=== PATIENT | male | born 1930 | race Caucasian/White ===

== ENCOUNTER → 2016-11-11 | Outpatient (CLI) | payer MEDICARE ==
[2016-11-11 09:48] LABS: BASO % 0.5 % (0.0-1.0); EOS # 0.3 K/mm3 (0.0-0.50); EOS % 5.1 % (0.0-3.0); LYMPH # 1.8 K/mm3 (1.5-4.5); LYMPH % 26.2 % (24.0-44.0); MEAN CORPUSCULAR HEMOGLOBIN 31.9 pg (27.0-33.0); MEAN CORPUSCULAR HGB CONC 32.7 g/dl (32.0-36.5); MEAN CORPUSCULAR VOLUME 97.4 fl (80.0-96.0); MONO # 0.4 K/mm3 (0.0-0.8); MONO % 7.1 % (0.0-5.0); NEUTROPHILS # 3.7 K/mm3 (1.8-7.7); NEUTROPHILS % 58.9 % (36.0-66.0); RED CELL DISTRIBUTION WIDTH 13.5 % (11.5-14.5); WHITE BLOOD COUNT 6.2 K/mm3 (4.0-10.0)
[2016-11-11 10:54] LABS: ALBUMIN 3.6 GM/DL (3.2-5.2); ALBUMIN/GLOBULIN RATIO 1.13 (1.00-1.93); BILIRUBIN,TOTAL 0.3 MG/DL (0.2-1.0); CALCIUM LEVEL 8.8 MG/DL (8.8-10.2); CREATININE FOR GFR 1.27 MG/DL (0.70-1.30); POTASSIUM SERUM 4.7 MEQ/L (3.5-5.1); TOTAL PROTEIN 6.8 GM/DL (6.4-8.2)
== END ==
LOC: M LAB 09:01
PROVIDERS: ATTEND Physician Assistant
DX: I10 Essential (primary) hypertension (principal); E11.9 Type 2 diabetes mellitus without complications; R60.0 Localized edema; I35.8 Other nonrheumatic aortic valve disorders; I25.10 Atherosclerotic heart disease of native coronary artery without angina pectoris

== ENCOUNTER → 2016-11-18 | Outpatient (CLI) | payer MEDICARE ==
[2016-11-18 15:29] LABS: RETIC HEMOGLOBIN CONTENT CHr 34.4 PG (24-36); RETICULOCYTE % ADVIA2120 1.5 % (0.5-1.5)
[2016-11-18 15:51] LABS: PERCENT SATURATION 23.6 % (19.7-37.4)
== END ==
LOC: M LAB 14:47
PROVIDERS: ATTEND Family Medicine
DX: D64.9 Anemia, unspecified (principal)

== ENCOUNTER → 2017-05-09 | Outpatient (CLI) | payer MEDICARE ==
[2017-05-09 08:02] LABS: RETIC HEMOGLOBIN EQUIVALENT 35.5 pg (24-36); RETICULOCYTE % 1.6 % (0.5-1.5)
== END ==
LOC: M LAB 07:13
PROVIDERS: ATTEND Family Medicine
DX: D64.9 Anemia, unspecified (principal)

== ENCOUNTER → 2017-10-17 | Outpatient (REF) | payer MEDICARE | LOC: M LAB REF 11:43 | DX: J44.9 Chronic obstructive pulmonary disease, unspecified (principal) | CPT/HCPCS: 87186 ==

== ENCOUNTER → 2017-11-05 | Outpatient (CLI) | payer MEDICARE ==
[2017-11-05 08:03] LABS: ESTIMATED AVERAGE GLUCOSE 105 MG/DL (60-110); HEMOGLOBIN A1c 5.3 %
[2017-11-05 08:14] LABS: ANION GAP 12 MEQ/L (8-16); BLOOD UREA NITROGEN 21 MG/DL (7-18); CALCIUM LEVEL 8.3 MG/DL (8.8-10.2); CARBON DIOXIDE LEVEL 19 MEQ/L (21-32); CHLORIDE LEVEL 101 MEQ/L (98-107); CHOLESTEROL LEVEL 125 MG/DL (<200); CHOLESTEROL RISK RATIO 2.358 (<5); CREATININE FOR GFR 1.38 MG/DL (0.70-1.30); GLOMERULAR FILTRATION RATE 51.6 (>35); GLUCOSE, FASTING 102 MG/DL (70-100); HDL CHOLESTEROL 53 MG/DL (>40); LDL CHOLESTEROL 55.2 MG/DL (<100); NON-HDL-C 72 MG/DL; POTASSIUM SERUM 4.8 MEQ/L (3.5-5.1); SODIUM LEVEL 132 MEQ/L (136-145); TRIGLYCERIDES LEVEL 84 MG/DL (<150)
== END ==
LOC: M LAB 07:17
DX: E11.9 Type 2 diabetes mellitus without complications (principal)
CPT/HCPCS: 83036

== ENCOUNTER → 2017-11-18 | Outpatient (CLI) | payer MEDICARE | LOC: M CARPUL 09:03 | DX: R06.09 Other forms of dyspnea (principal); R05 Cough | CPT/HCPCS: 94060 ==

== ENCOUNTER → 2018-05-12 | Outpatient (CLI) | payer MEDICARE ==
[~2018-05-12] MED LIST: AMLO5TAB6 PO; ASPI81TA85 PO; ASPI81TAEC PO; FISH1000 PO; FLON1SPR; GLIP2.5T6 PO; HYDR10TAB PO; LORA10TA3 PO; LUTE10TA PO; METF500T13 PO; METO37.5 PO; METO50TA7 PO; OLME20TA2 PO; PROAAER10 INH; REST0.05 OU
[2018-05-12 08:15] LABS: CALCIUM LEVEL 8.6 MG/DL (8.8-10.2); CHOLESTEROL RISK RATIO 2.636 (<5); CREATININE FOR GFR 1.52 MG/DL (0.70-1.30); GLOMERULAR FILTRATION RATE 46.2 (>35); POTASSIUM SERUM 5.2 MEQ/L (3.5-5.1)
[2018-05-12 08:30] LABS: HEMOGLOBIN A1c 6.4 %
[2018-05-12 08:46] LABS: CREATININE, URINE 28.1 MG/DL; MAU/CREAT RATIO 1715.3 MCG/MG (0.0-30.0)
== END ==
LOC: M LAB 07:12
PROVIDERS: ATTEND Family Medicine
DX: E11.9 Type 2 diabetes mellitus without complications (principal)

== ENCOUNTER 2018-05-18 23:05 | Observation (INO) | payer MEDICARE ==
[~2018-05-18] VITALS: Ht 165.1 cm; Wt 64.8 kg
[2018-05-18] MEDS: ASPIRIN 81 MG ENTERIC TAB PO SCH (21:00)
[2018-05-18] MEDS ORDERED: ASPI81TA85 PO (23:26)
[2018-05-18] MEDS ORDERED: METO37.5 PO (23:26)
[2018-05-18] MEDS ORDERED: NS 1,000 ML IV ONE (23:45)
[2018-05-19 00:11] LABS: BASO # 0.1 10^3/uL (0.0-0.2); BASO % 0.6 % (0.0-1.0); EOS # 0.6 10^3/uL (0.0-0.50); EOS % 6.4 % (0.0-3.0); HEMATOCRIT 26.9 % (42.0-52.0); LYMPH # 1.9 10^3/uL (1.5-4.5); LYMPH % 21.4 % (24.0-44.0); MEAN CORPUSCULAR HEMOGLOBIN 31.6 pg (27.0-33.0); MEAN CORPUSCULAR HGB CONC 33.5 g/dl (32.0-36.5); MEAN CORPUSCULAR VOLUME 94.4 fl (80.0-96.0); MONO # 0.8 10^3/uL (0.0-0.8); MONO % 9.2 % (0.0-5.0); NEUTROPHILS # 5.5 10^3/uL (1.8-7.7); NEUTROPHILS % 61.7 % (36.0-66.0); PLATELET COUNT, AUTOMATED 226 10^3/uL (150-450); RED BLOOD COUNT 2.85 10^6/uL (4.30-6.10); WHITE BLOOD COUNT 8.9 10^3/uL (4.0-10.0)
[2018-05-19 00:36] LABS: BLOOD UREA NITROGEN 53 MG/DL (7-18); CALCIUM LEVEL 8.6 MG/DL (8.8-10.2); CARBON DIOXIDE LEVEL 18 MEQ/L (21-32); CHLORIDE LEVEL 109 MEQ/L (98-107); CPK CREATINE PHOSPHOKINASE 69 U/L (39-308); CREATININE FOR GFR 1.79 MG/DL (0.70-1.30); ETHYL ALCOHOL (ETHANOL) < 0.003 % (0.000-0.010); GLOMERULAR FILTRATION RATE 38.3 (>35); GLUCOSE, FASTING 155 MG/DL (70-100); MB/CK RELATIVE INDEX 2.46 (< OR =4); POTASSIUM SERUM 4.7 MEQ/L (3.5-5.1); SODIUM LEVEL 138 MEQ/L (136-145); TROPONIN I < 0.02 NG/ML (< 0.10)
--- NOTE | 2018-05-19 00:39 | REPVR ---
EXAM: CT Head Without Contrast EXAM DATE/TIME: 05/18/2018 11:37 PM CLINICAL HISTORY: 87 years old, male; Dizziness; Syncope TECHNIQUE: Axial computed tomography images of the head/brain without contrast. All CT scans at this facility use at least one of these dose optimization techniques: automated exposure control; mA and/or kV adjustment per patient size (includes targeted exams where dose is matched to clinical indication); or iterative reconstruction. COMPARISON: No relevant prior studies available. FINDINGS: Brain: There is no evidence for an acute large vessel territorial infarct, intracranial hemorrhage, mass, mass effect, or herniation. There are non-specific foci of low attenuation in the periventricular and subcortical white matter, which are likely the sequela of chronic small vessel ischemic injury. Brainstem: Unremarkable. Midline shift: There is no midline shift. Ventricles: The ventricles are mildly to moderately dilated in proportion to the sulci, which is compatible with mild to moderate generalized cerebral volume loss. Bones/joints: Normal. No acute fracture. Sinuses: Normal as visualized. No acute sinusitis. Mastoid air cells: There has been a partial right mastoidectomy and there is opacification of the right mastoid bowl. The left mastoid air cells are clear. Orbits: Incidental note is made of bilateral lens implants. Soft tissues: Unremarkable. Vasculature: There are atherosclerotic calcifications of the vertebral arteries and internal carotid arteries. IMPRESSION: 1. No CT evidence for an acute intracranial process. 2. Periventricular and subcortical white matter changes, which are likely the sequela of chronic small vessel ischemic injury. Electronically signed by: Mal Brady On 05/19/2018 00:39:13 AM
[2018-05-19] MEDS ORDERED: NS 1,000 ML IV SCH (01:36)
[2018-05-19] MEDS ORDERED: LORA10TA3 PO (01:42)
[2018-05-19] MEDS ORDERED: OLME20TA2 PO (01:42)
[2018-05-19] MEDS ORDERED: METF500T13 PO (01:42)
[2018-05-19] MEDS ORDERED: LUTE10TA PO (01:42)
[2018-05-19] MEDS ORDERED: GLIP2.5T6 PO (01:42)
[2018-05-19] MEDS ORDERED: METO50TA7 PO (01:42)
[2018-05-19] MEDS ORDERED: ASPI81TAEC PO (01:42)
[2018-05-19] MEDS ORDERED: REST0.05 OU (01:42)
[2018-05-19] MEDS ORDERED: FLON1SPR (01:42)
[2018-05-19] MEDS ORDERED: PROAAER10 INH (01:42)
[2018-05-19] MEDS ORDERED: FISH1000 PO (01:42)
[2018-05-19] MEDS ORDERED: ACETAMINOPHEN TAB 650MG DOSE (2X325MG) PO PRN (01:45)
[2018-05-19] MEDS ORDERED: IPRATROPIUM 0.5MG/ALBUTEROL 2.5MG INH SOL UD 3ML (DUONEB)(J7620) NEB PRN (01:45)
[2018-05-19] MEDS ORDERED: DEXTROSE 50% 50 ML SYRINGE IV PRN (01:45)
[2018-05-19] MEDS ORDERED: GLUCOSE 4 GM CHEW TABLET PO PRN (01:45)
[2018-05-19] MEDS ORDERED: GLUCAGON FOR INJ 1 MG VIAL (J1610) SC PRN (01:45)
--- NOTE | 2018-05-19 01:52 | HPEPDOC ---
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 He lost consciousness and was witnessed by his practitioner, one of his practitioner caught patient prior to fall. Patient denies of any prodrome illness such as fever, cough, sputum production, abdominal pain, diarrhea, or problems urinating. Patient also denies of any precipitating factors to make ensure that this such as chest pain, shortness of breath, palpitation, dizziness, or headache. But he has been having dry cough after having been ill with a cold 3 weeks ago. His roommate also was ill with similar symptoms and is also at the tail end of the illness as well. The only symptom that was left from the cold is the cough. Due to the holiday season, patient has not ate or drank well. He may have overworked himself this iday season. In the emergency room patient was found to have acute on chronic kidney disease. Review system: 10 point review systems negative than those described in HPI Past medical history: Coronary artery disease, heart murmur, hyperlipidemia, diabetes, hypertension X line surgical history CABG 1993, hemorrhoidectomy, mastoidectomy when he was 5 years old Social history patient drinks one scotch per day, used to smoke cigars but quit in 1979 (he smokes cigar from 1957 -), denies of any IV drug abuse Family medical history: Noncontributory ALLERGIES: Please see below. HOME MEDICATIONS: Please see below. PHYSICAL EXAMINATION: VITAL SIGNS: Please see below GENERAL APPEARANCE: Resting comfortably HEENT: Normocephalic, PERRLA, Mucous moist, CARDIOVASCULAR: S1,S2, pulse present, regularly, regular, Positive for murmur (which patient is aware of) LUNGS: Equal decreased air entry b/l, no wheezes or crackle ABDOMEN: Soft, BS present, no tenderness, no guarding GENITOURINARY: No Guzman EXTREMITIES: B/L no edema, capillary refill present SKIN: Warm, No fever NEUROLOGICAL: Cranial nerves grossly intact PSYCHIATRIC: Normal mood and affect for current situation, family at the bedside LABORATORY DATA: See below. IMAGING: [CT head: 1. No CT evidence for an acute intracranial process. 2. Periventricular and subcortical white matter changes, which are likely the sequela of chronic small vessel ischemic injury. ] MICROBIOLOGY: Please see below. 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 Syncope, dehydration and vasovagal response Telemetry, serial cardiac enzyme, echocardiogram Orthostatic Gentle IV fluid Acute on chronic kidney disease UA IV fluid Hold renal toxic medication Monitor, renal ultrasound and renal consult if no improvement CAD, resume home regimen Hypertension, resume home regimen and utilize prn medication Diabetes, fingersticks plus sliding scale, hold by mouth medication for now and utilize long-acting as needed Hyperlipidemia, currently not on any regimen please follow up with PCP Chronic anemia stable monitor DVT prophylaxis with heparin subcutaneous Vital Signs Vital Signs Date Time Temp Pulse Resp B/P (MAP) Pulse Ox O2 Delivery O2 Flow Rate FiO2 05/19/18 01:05 84 18 99 Room Air 05/19/18 01:00 176/78 (110) 05/18/18 23:08 96.7 Laboratory Data Labs 24H Laboratory Tests 2 05/18/18 23:46: Immature Granulocyte % (Auto) 0.7, White Blood Count 8.9, Red Blood Count 2.85L, Hemoglobin 9.0L, Hematocrit 26.9L, Mean Corpuscular Volume 94.4, Mean Corpuscul ar Hemoglobin 31.6, Mean Corpuscular Hemoglobin Concent 33.5, Red Cell Distribution Width 13.3, Platelet Count 226, Neutrophils (%) (Auto) 61.7, Lymphocytes (%) (Auto) 21.4L, Monocytes (%) (Auto) 9.2H, Eosinophils (%) (Auto) 6.4H, Basophils (%) (Auto) 0.6, Neutrophils # (Auto) 5.5, Lymphocytes # (Auto) 1.9, Monocytes # (Auto) 0.8, Eosinophils # (Auto) 0.6H, Basophils # (Auto) 0.1, Nucleated Red Blood Cells % (auto) 0.0, Anion Gap 11, Glomerular Filtration Rate 38.3, Blood Urea Nitrogen 53H, Creatinine 1.79H, Sodium Level 138, Potassium Level 4.7, Chloride Level 109H, Carbon Dioxide Level 18L, Calcium Level 8.6L, Total Creatine Kinase 69, Creatine Kinase MB 2.0, Creatine Kinase MB Relative In dex 2.46, Troponin I < 0.02, Ethyl Alcohol Level < 0.003 CBC/BMP Laboratory Tests 05/18/18 23:46 Red Blood Count 2.85 L, Mean Corpuscular Volume 94.4, Mean Corpuscular Hemoglobi n 31.6, Mean Corpuscular Hemoglobin Concent 33.5, Red Cell Distribution Width 13.3, Neutrophils (%) (Auto) 61.7, Lymphocytes (%) (Auto) 21.4 L, Monocytes (%) (Auto) 9.2 H, Eosinophils (%) (Auto) 6.4 H, Basophils (%) (Auto) 0.6, Neutrophils # (Auto) 5.5, Lymphocytes # (Auto) 1.9, Monocytes # (Auto) 0.8, Eosinophils # (Auto) 0.6 H, Basophils # (Auto) 0.1, Calcium Level 8.6 L, Total Creatine Kinase 69 Home Medications Scheduled (Restasis) 0.05 % Emu, 1 DROP OU DAILY (Lutein) 10 Mg Tab, 10 MG PO DAILY Aspirin (Aspirin EC) 81 Mg Tabec, 81 MG PO QHS Fish Oil (Fish Oil) 1,000 Mg Cap, 1,000 MG PO DAILY Fluticasone Propionate (Flonase Allergy Relief) 50 Mcg/Act Spr, 2 SPRAYS NA BID Glipizide (Glipizide ER) 2.5 Mg Tab, 2.5 MG PO DAILY Loratadine (Loratadine) 10 Mg Tab, 10 MG PO DAILY Metformin Hydrochloride (Metformin HCl) 500 Mg Tab, 1,000 MG PO BID Metoprolol Tartrate (Metoprolol Tartrate) 50 Mg Tab, 25 MG PO BID Olmesartan Medoxomil (Olmesartan Medoxomil) 20 Mg Tab, 20 MG PO DAILY Scheduled PRN Albuterol Sulfate (Proair Hfa) 108 Mcg/Act Aer, 2 PUFF INH Q4H PRN for SHORTNESS OF BREATH Allergies Coded Allergies: No Known Allergies (Unverified , 01/12/15) SJ BROWN MD May 19, 2018 01:52
[2018-05-19] MEDS: **hydrALAZINE** 10 MG TAB PO PRN ×4 (02:14→18:58)
[2018-05-19 03:07] LABS: MB/CK RELATIVE INDEX 2.82 (< OR =4); TROPONIN I 0.03 NG/ML (< 0.10)
[2018-05-19] MEDS ORDERED: METOPROLOL TART 25 MG TABLET PO ONE (03:30)
[2018-05-19] MEDS ORDERED: NITROGLYCERIN 2% OINT 1 GM *U/D* PKT TOP ONE (05:45)
[2018-05-19 05:55] LABS: HEMATOCRIT 25.2 % (42.0-52.0); HEMOGLOBIN 8.5 g/dl (13.5-17.5); MEAN CORPUSCULAR HEMOGLOBIN 31.3 pg (27.0-33.0); MEAN CORPUSCULAR HGB CONC 33.7 g/dl (32.0-36.5); MEAN CORPUSCULAR VOLUME 92.6 fl (80.0-96.0); PLATELET COUNT, AUTOMATED 216 10^3/uL (150-450); RED BLOOD COUNT 2.72 10^6/uL (4.30-6.10); WHITE BLOOD COUNT 8.8 10^3/uL (4.0-10.0)
[2018-05-19] MEDS: HEPARIN SOD (PORCINE) 5000 UNITS/ML VIAL SC SCH ×3 (06:02→21:14)
--- NOTE | 2018-05-19 06:07 | ECGEPIP ---
Stationary ECG Study [facility] - ED Test Date: 2018-05-18 Pat Name: CHELO HONEYCUTT Department: Room: - Gender: M [employer] Car[employer]: navi : 1930 Requested By: DEJUAN PIERCE Order Number: [id number] Reading MD: Dean Pritchard Measurements Intervals [place] Rate: 86 P: 83 W[place]: 216 QRS: -21 QRSD: 83 T: 45 QT: 373 QTc: 447 Interpretive Statements SINUS RHYTHM WITH FIRST DEGREE AV BLOCK BORDERLINE LEFT AXIS DEVIATION MINIMAL VOLTAGE CRITERIA FOR LVH, CONSIDER NORMAL VARIANT RATE CHANGE COMPARED TO 01/10/15 Electronically Signed On 05-19-2018 6:06:35 EST by Dean Pritchard
[2018-05-19 06:18] LABS: CALCIUM LEVEL 8.4 MG/DL (8.8-10.2); CREATININE FOR GFR 1.52 MG/DL (0.70-1.30); GLOMERULAR FILTRATION RATE 46.2 (>35)
--- NOTE | 2018-05-19 06:35 | REP ---
Clinical: Cough . Comparison: 01/10/2015 . Findings: The mediastinum and cardiac silhouette are stable and within normal limits for portable technique. The lung cruz demonstrate diffuse chronic interstitial changes without acute consolidation, effusion, or pneumothorax. Skeletal structures are intact. Evidence for prior sternotomy. Impression: No acute cardiopulmonary process appreciated. Electronically Signed by Jan Garrido MD 05/19/2018 06:26 A
[2018-05-19 07:04] VITALS: BP 180/82
[2018-05-19 08:00] VITALS: BP 198/91
[2018-05-19] MEDS: LORATADINE 10 MG TAB PO SCH (08:36)
[2018-05-19] MEDS: FLUTICASONE PROP 0.05% NASAL SPRAY 16 GM (FLONASE) SCH ×2 (08:37→21:13)
[2018-05-19] MEDS: METOPROLOL TART 25 MG TABLET PO SCH ×2 (08:37→21:13)
[2018-05-19] MEDS: HumaLOG INSULIN (NovoLOG) PER UNIT SC SCH ×3 (08:37→16:42)
[2018-05-19 09:00] LABS: APPEARANCE, URINE CLEAR (CLEAR); BACTERIA, URINE AUTO 1+ (NEGATIVE); BILIRUBIN, URINE AUTO NEGATIVE (NEGATIVE); BLOOD, URINE BLOOD 1+ (NEGATIVE); COLOR, URINE STRAW (YELLOW); GLUCOSE, URINE (UA) AUTO NEGATIVE (NEGATIVE); KETONE, URINE AUTO NEGATIVE (NEGATIVE); LEUKOCYTE ESTERASE, URINE AUTO TRACE (NEGATIVE); NITRITE, URINE AUTO NEGATIVE (NEGATIVE); PROTEIN, URINE AUTO 1+ mg/dL (NEGATIVE); RBC, URINE AUTO 6 /HPF (0-3); SPECIFIC GRAVITY URINE AUTO 1.006 (1.002-1.035); SQUAMOUS EPITHELIAL CELL UR AU 0 /HPF (0-6); UROBILINOGEN, URINE AUTO 0.2 mg/dL (0.0-2.0); WBC, URINE AUTO 10 /HPF (0-3)
[2018-05-19 10:01] LABS: MB/CK RELATIVE INDEX 3.55 (< OR =4); TROPONIN I 0.04 NG/ML (< 0.10)
[2018-05-19 12:00] VITALS: BP 190/85
[2018-05-19 12:22] VITALS: BP 172/68
[2018-05-19] MEDS: NS 0.45% 1,000 ML IV SCH (12:34)
[2018-05-19 15:45] VITALS: BP 160/70
[2018-05-19] MEDS: OLMESARTAN MEDOXOMIL 20 MG TAB (BENICAR) PO SCH (15:54)
[2018-05-19 18:00] LABS: MB/CK RELATIVE INDEX 3.07 (< OR =4); TROPONIN I 0.04 NG/ML (< 0.10)
[2018-05-19 20:00] VITALS: BP 152/68
[2018-05-19] MEDS ORDERED: HumaLOG INSULIN (NovoLOG) PER UNIT SC SCH (21:00)
[2018-05-19] MEDS: ASPIRIN 81 MG ENTERIC TAB PO SCH (21:12)
[2018-05-20] VITALS: BP 152/68
[2018-05-20] MEDS: **hydrALAZINE** 10 MG TAB PO PRN ×3 (00:17→08:57)
[2018-05-20] MEDS: NS 0.45% 1,000 ML IV SCH (01:14)
[2018-05-20 04:00] VITALS: BP 160/74
[2018-05-20] MEDS: HEPARIN SOD (PORCINE) 5000 UNITS/ML VIAL SC SCH (05:51)
[2018-05-20 05:55] LABS: HEMATOCRIT 24.5 % (42.0-52.0); HEMOGLOBIN 8.1 g/dl (13.5-17.5); MEAN CORPUSCULAR HEMOGLOBIN 30.7 pg (27.0-33.0); MEAN CORPUSCULAR HGB CONC 33.1 g/dl (32.0-36.5); MEAN CORPUSCULAR VOLUME 92.8 fl (80.0-96.0); PLATELET COUNT, AUTOMATED 215 10^3/uL (150-450); RED BLOOD COUNT 2.64 10^6/uL (4.30-6.10); WHITE BLOOD COUNT 7.4 10^3/uL (4.0-10.0)
[2018-05-20 06:23] LABS: CREATININE FOR GFR 1.36 MG/DL (0.70-1.30); GLOMERULAR FILTRATION RATE 52.5 (>35); POTASSIUM SERUM 4.3 MEQ/L (3.5-5.1)
[2018-05-20 08:00] VITALS: BP_SYST 182; BP_SYST 192; BP_SYST 198; BP_DIAS 76; BP_DIAS 78
[2018-05-20] MEDS: HumaLOG INSULIN (NovoLOG) PER UNIT SC SCH ×2 (08:41→12:00)
[2018-05-20 08:44] VITALS: BP 182/76
[2018-05-20] MEDS: METOPROLOL TART 25 MG TABLET PO SCH (08:44)
[2018-05-20] MEDS: OLMESARTAN MEDOXOMIL 20 MG TAB (BENICAR) PO SCH (08:44)
[2018-05-20] MEDS: LORATADINE 10 MG TAB PO SCH (08:44)
[2018-05-20] MEDS: FLUTICASONE PROP 0.05% NASAL SPRAY 16 GM (FLONASE) SCH (08:45)
[2018-05-20] MEDS ORDERED: PREVNAR 13 VACCINE SYRINGE (CPT CODE:90670) IM ONE (09:00)
[2018-05-20] MEDS ORDERED: amLODIPine 5 MG TAB PO SCH (09:00)
--- NOTE | 2018-05-20 10:33 | IPN ---
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 He was admitted with syncope and near syncope. He just had an annual wellness exam with Dr. Johnston, primary care provider, within the last month, but nothing unremarkable found. The patient denies any dizziness, lightheadedness or other syncopal or near syncopal symptoms. Telemetry has shown strict sinus rhythm with first degree atrioventricular (AV) block. PHYSICAL EXAM: Vital signs: Stable. Blood pressure has been elevated 200/80, pulse of 71. General appearance: Resting comfortably. Elderly. Alert. Conversant. No jugular venous distention (JVD). Lungs: Clear. Heart: Regular rate and rhythm with 1-2/6 systolic ejection murmur. Abdomen: Soft. Nontender. No masses. No peripheral edema. IMPRESSION: 1. Syncope. Etiology is unknown. Continue with the telemetry for 24-48 hours. 2. Hypertension. Blood pressure is elevated. He is on olmesartan 20 mg daily, metoprolol 25 mg twice a day at home. Currently, he has been receiving metoprolol and hydralazine. I will restart his angiotensin receptor ibis (ARB). His renal function is back to baseline. Continue his metoprolol. Next up would probably add some amlodipine. 3. Acute on chronic kidney disease. Renal function is improved today. Restart ARB. His baseline creatinine looks like it is around 1.4. 4. Diabetes. He is on metformin and glipizide (metformin 1000 mg twice a day and glipizide 2.5 mg daily at home). Currently on sliding scale with insulin. Probably will restart his glipizide tomorrow.
[2018-05-20] MEDS ORDERED: HYDR10TAB PO (11:25)
[2018-05-20] MEDS ORDERED: AMLO5TAB4 PO (11:25)
[2018-05-20 11:44] VITALS: BP 144/76
--- NOTE | 2018-05-20 13:47 | DSES ---
DATE OF ADMISSION: 05/19/2018 DATE OF DISCHARGE: 05/20/2018 PRINCIPAL DIAGNOSIS: Syncope, probably vasovagal. SECONDARY DIAGNOSES: 1. History of coronary artery disease. 2. Hypertension. 3. Type 2 diabetes. 4. Chronic kidney disease. 5. Anemia secondary to chronic kidney disease. 6. Unspecified heart murmur. 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 It was witnessed by his primary care provider. The patient was admitted for further evaluation. HOSPITAL COURSE: The patient was admitted to a telemetry bed. He had no arrhythmias during the course of his hospitalization. Blood pressure was elevated on admission, but came down with reinstituting his antihypertensives. It needs to be fine tuned as an outpatient, but it is satisfactory for discharge at this time. He is a type 2 diabetic. He was given insulin during the hospitalization and required scant amounts of insulin. He had no chest pain, syncope, presyncope, or dizziness during the course of his hospitalization. LABORATORIES: Today, sodium was 149, potassium 4.3, BUN 49, creatinine 1.3, glucose 136, white count 7.4, hemoglobin 8.1, which is stable, platelets 215. DISPOSITION: I expect that he is going to be discharged today. His blood pressure is still a little high, but I am adjusting his medications. I added amlodipine 5 mg daily to his regimen. 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 He is on Benicar 20 mg daily, Lopressor 25 mg twice a day as an outpatient. I anticipate that he will not need to continue the hydralazine for very long. Again, not a good long-term blood pressure medication. He will resume his: - albuterol two puffs every 4 hours as needed - aspirin 81 mg daily - Flonase two sprays twice a day - glipizide ER 2.5 mg daily - loratadine 10 mg daily - metformin 1000 mg twice a day - Restasis eye drops Advised to stop fish oil, which has been recently proven to have no cardiovascular benefit. The only new medications anticipated on discharge are amlodipine 5 mg daily, hydralazine 10 mg every 6 hours, expectation that this will be discontinued at office followup. He is on a no added salt diet. Followup with Dr. Johnston, his primary care physician, in 1 week. edited: 05/21/2018 0715 tkf BRENDON
--- NOTE | 2018-05-21 09:47 | ECHO ---
DATE OF PROCEDURE: 05/20/2018 DATE OF : 1930 AGE: 87 REFERRING PROVIDER: Dr. Sonia Parikh. PATIENT LOCATION: Room 3219 REASON FOR ECHOCARDIOGRAM: Syncope. 2D MEASUREMENTS: IVS: 1.0 cm LV: 4.8 cm LVPW: 1.0 cm LA: 4.1 cm Aorta: 2.7 cm IVC: 1.7 cm DOPPLER MEASUREMENTS: Peak velocity across the aortic valve: 2.1 m/s Peak velocity across the LVOT: 0.99 m/s Peak gradient across the aortic valve: 18 mmHg Mitral E: 1.1 Mitral A: 0.89 Ratio 1.3 Maximum tricuspid valve velocity: 2.4 m/s 2D COMMENTS: 1. Normal left ventricular size, wall thickness and normal global left ventricular systolic function. The estimated global left ventricular systolic ejection fraction is 60% to 65%. 2. Mildly enlarged left atrium. Normal right atrium and right ventricle. 3. The atrial septum appeared to be normal without evidence of defect or shunt. 4. Normal aortic root. 5. No pericardial effusion seen. 6. Mildly calcified aortic valve with minimally restricted leaflet motion. Mildly calcified mitral annulus with normal anterior mitral valve leaflet motion. Normal tricuspid valve and pulmonic valve. The proximal pulmonary artery branches were not well visualized. 7. The inferior vena cava was normal in size, central venous pressure is most likely normal. DOPPLER: It detects mild aortic regurgitation, mild to moderate mitral regurgitation, mild tricuspid regurgitation. The calculated pulmonary artery systolic pressure varies between 30 to 40 mmHg. Assessment of the left ventricular diastolic function appeared to be normal. IMPRESSION: 1. Normal global left ventricular systolic and diastolic function. 2. Aortic valve sclerosis with trace aortic regurgitation and mild aortic stenosis. 3. Mitral annulus calcification with mildly enlarged left atrium and mild to moderate mitral regurgitation. 4. Mild tricuspid regurgitation with mild pulmonary hypertension. MTDD
== END 2018-05-20 14:45 | disposition home or self-care (01) ==
LOC: M ED 23:05 → EDBD 23:05 → M ED INP 23:37 → UNDOADMOB 05-19 01:36 → M ED INP 05-19 06:54 → M PCU 05-19 06:54 → UNDODISOB 05-20 14:45
PROVIDERS: ADMIT Internal Medicine; ATTEND Hospitalist
DX: R55 Syncope and collapse (principal); I25.10 Atherosclerotic heart disease of native coronary artery without angina pectoris; I12.9 Hypertensive chronic kidney disease with stage 1 through stage 4 chronic kidney disease, or unspecified chronic kidney disease; E11.9 Type 2 diabetes mellitus without complications; N18.9 Chronic kidney disease, unspecified; D63.1 Anemia in chronic kidney disease; R01.1 Cardiac murmur, unspecified; Z79.899 Other long term (current) drug therapy; E78.5 Hyperlipidemia, unspecified; E86.0 Dehydration; Z79.82 Long term (current) use of aspirin; Z79.84 Long term (current) use of oral hypoglycemic drugs
CPT/HCPCS: 36415; 70450; 71045; 80048; 81001; 82550; 82553; 84484; 85025; 85027; 90670; 93005; 93306; 96360; 96361; 96372; 99285; G0009; G0378; G0480

== ENCOUNTER 2018-07-13 15:50 | Emergency (ER) | payer MEDICARE ==
[~2018-07-13] VITALS: Ht 167.6 cm; Wt 69.1 kg
--- NOTE | 2018-07-13 16:44 | REP ---
Right shoulder three views: There are no comparisons. There is no fracture or dislocation. There is acromioclavicular osteoarthritis. Mineralization is normal. There are no calcifications or foreign bodies. Impression: No fracture or dislocation. Acromioclavicular osteoarthritis. Electronically Signed by Nacho Nichols MD 07/13/2018 04:35 P
[2018-07-13 18:20] VITALS: BP 179/77
== END 2018-07-13 18:29 | disposition home or self-care (01) ==
LOC: M ED 15:50
DX: M19.011 Primary osteoarthritis, right shoulder (principal); W00.0XXA Fall on same level due to ice and snow, initial encounter; Y92.89 Other specified places as the place of occurrence of the external cause; I10 Essential (primary) hypertension; E11.9 Type 2 diabetes mellitus without complications; Z95.1 Presence of aortocoronary bypass graft; Z79.82 Long term (current) use of aspirin; Z79.899 Other long term (current) drug therapy; Z79.84 Long term (current) use of oral hypoglycemic drugs

== ENCOUNTER → 2018-07-28 | Outpatient (CLI) | payer MEDICARE ==
[2018-07-28 11:46] LABS: CALCIUM LEVEL 9.4 MG/DL (8.8-10.2); CHOLESTEROL RISK RATIO 2.161 (<5); CREATININE FOR GFR 1.45 MG/DL (0.70-1.30); GLOMERULAR FILTRATION RATE 48.8 (>35); POTASSIUM SERUM 4.8 MEQ/L (3.5-5.1)
[2018-07-28 12:49] LABS: CREATININE, URINE 26.2 MG/DL; MAU/CREAT RATIO 1324.4 MCG/MG (0.0-30.0)
== END ==
LOC: M LAB 09:19
PROVIDERS: ATTEND Family Medicine
DX: E11.9 Type 2 diabetes mellitus without complications (principal)